=== PATIENT | female | born 2000 | race American Indian/Alaskan Native ===

== ENCOUNTER 2021-02-22 19:32 | Emergency (ER) | payer SELFPAY ==
[2021-02-22 20:36] VITALS: BP 124/68
== END 2021-02-23 01:00 | disposition left against medical advice (07) ==
LOC: ED 19:32
DX: M54.2 Cervicalgia (principal); Z53.21 Procedure and treatment not carried out due to patient leaving prior to being seen by health care provider

== ENCOUNTER 2021-10-13 01:54 | Emergency (ER) | payer SELFPAY ==
[2021-10-13 02:56] VITALS: BP 116/72
--- NOTE | 2021-10-13 03:07 | Emergency Department Report ---
ED General Adult HPI - General Chief complaint: Dental/Oral Stated complaint: MOUTH PAIN Source: patient Mode of arrival: Ambulatory Limitations: No Limitations - History of Present Illness Initial comments: Patient is an 21-year-old -Maced[place] female with no past medical history who presents to the ED with complaint of acute onset persistent painful swollen right mandibular gingiva and premolar molar toothache for the last 1 week, worse in the last 2 days. Patient states that the pain is worse with eating or speech, and that in the last 24 hours she also started having painful anterior right cervical lymphadenopathy. Patient denies ear pain, headache, chest pain, shortness of breath, fever, chills, nausea and vomiting, diarrhea, dysuria, urinary frequency and urgency and sore throat. MD Complaint: Right mandibular premolar and molar toothache; swollen gums -: Sudden, week(s) (1) Location: mouth Radiation: non-radiation Severity scale (0 -10): 4 Quality: aching, sharp Consistency: constant Improves with: none Worsens with: eating Associated Symptoms: denies other symptoms. denies: confusion, chest pain, cough, diaphoresis, fever/chills, headaches, loss of appetite, malaise, nausea/vomiting, rash, seizure, shortness of breath, syncope, weakness Treatments Prior to Arrival: none - Related Data Previous Rx's Medication Instructions Recorded Last Taken Type Amoxicillin/Potassium Clav 1 each PO Q12H #20 tab 10/13/21 Unknown Rx [Augmentin 875-125 Tablet] Ibuprofen [Motrin] 600 mg PO Q8H PRN #30 tablet 10/13/21 Unknown Rx Allergies Allergy/AdvReac Type Severity Reaction Status Date / Time No Known Allergies Allergy Verified 10/13/21 02:56 ED Review of Systems ROS: Stated complaint: MOUTH PAIN Other details as noted in HPI Constitutional: denies: chills, fever Eyes: denies: eye pain, eye discharge, vision change ENT: dental pain (Right mandibular premolar and molar toothache; swollen painful gum). denies: ear pain, throat pain Respiratory: denies: cough, shortness of breath, wheezing Cardiovascular: denies: chest pain, palpitations Endocrine: no symptoms reported Gastrointestinal: denies: abdominal pain, nausea, diarrhea Genitourinary: denies: urgency, dysuria, discharge Musculoskeletal: denies: back pain, joint swelling, arthralgia Skin: denies: rash, lesions Neurological: denies: headache, weakness, paresthesias Psychiatric: denies: anxiety, depression Hematological/Lymphatic: denies: easy bleeding, easy bruising ED Past Medical Hx - Past Medical History Previous Medical History?: No - Surgical History Past Surgical History?: Yes Additional Surgical History: breast reduction - Social History Smoking Status: Never Smoker Substance Use Type: None - Medications Home Medications: Home Medications Medication Instructions Recorded Confirmed Last Taken Type Amoxicillin/Potassium Clav 1 each PO Q12H #20 tab 10/13/21 Unknown Rx [Augmentin 875-125 Tablet] Ibuprofen [Motrin] 600 mg PO Q8H PRN #30 tablet 10/13/21 Unknown Rx ED Physical Exam - General Limitations: No Limitations General appearance: alert, in no apparent distress - Head Head exam: Present: atraumatic, normocephalic, normal inspection - Eye Eye exam: Present: normal appearance, PERRL, EOMI Pupils: Present: normal accommodation - ENT ENT exam: Present: mucous membranes moist, TM's normal bilaterally, normal external ear exam, other (Palpable tenderness of right mandibular premolar and molar teeth; mildly swollen, tender right mandibular gingiva) - Neck Neck exam: Present: normal inspection, full ROM, lymphadenopathy (Anterior right cervical lymphadenopathy). Absent: tenderness - Respiratory Respiratory exam: Present: normal lung sounds bilaterally. Absent: respiratory distress, wheezes, rales, rhonchi, chest wall tenderness, accessory muscle use, prolonged expiratory - Cardiovascular Cardiovascular Exam: Present: regular rate, normal rhythm, normal heart sounds. Absent: systolic murmur, diastolic murmur, rubs, gallop - GI/Abdominal GI/Abdominal exam: Present: soft, normal bowel sounds. Absent: tenderness, guarding, hyperactive bowel sounds, hypoactive bowel sounds, organomegaly - Extremities Exam Extremities exam: Present: normal inspection, full ROM, normal capillary refill. Absent: tenderness - Back Exam Back exam: Present: normal inspection, full ROM. Absent: tenderness, CVA tenderness (R), CVA tenderness (L), muscle spasm, paraspinal tenderness, vertebral tenderness - Neurological Exam Neurological exam: Present: alert, oriented X3, CN II-XII intact, normal gait, reflexes normal - Psychiatric Psychiatric exam: Present: normal affect, normal mood - Skin Skin exam: Present: warm, dry, intact, normal color. Absent: rash ED Course Vital Signs 10/13/21 02:52 Temperature 98.3 F Pulse Rate 90 Respiratory 14 Rate Blood Pressure 116/72 [Right] O2 Sat by Pulse 100 Oximetry ED Medical Decision Making - Medical Decision Making This is an 21-year-old -Maced[place] female with no past medical history who presents to the ED with complaint of acute onset persistent painful swollen right mandibular gingiva and premolar molar toothache for the last 1 week, worse in the last 2 days. Patient states that the pain is worse with eating or speech, and that in the last 24 hours she also started having painful anterior right cervical lymphadenopathy. In the ED, patient is alert and oriented x3 and is not in any distress. Patient is hemodynamically stable. Patient was discharged home on medications for pain and antibiotics, and advised to follow- up with her primary care physician or dentist in 7 to 10 days for reevaluation or return to the ED immediately if symptoms get worse. - Differential Diagnosis Dental abscess; gingivitis; dental caries; Critical care attestation.: If time is entered above; I have spent that time in minutes in the direct care of this critically ill patient, excluding procedure time. ED Disposition Clinical Impression: Dental abscess, Dental caries, Acute gingivitis Disposition: 01 HOME / SELF CARE / HOMELESS Is pt being admited?: No Does the pt Need Aspirin: No Condition: Stable Instructions: Dental Abscess, [id number], Trench Mouth, Dental Extraction, Care After, [id number] Additional Instructions: Take medication with food, drink plenty of fluids and follow-up with your primary care physician in 7 to 10 days for reevaluation. Return to the ED immediately if symptoms get worse with Prescriptions: Amoxicillin/Potassium Clav [Augmentin 875-125 Tablet] 1 each PO Q12H #20 tab Ibuprofen [Motrin] 600 mg PO Q8H PRN #30 tablet PRN Reason: Pain Referrals: [facility] [Outside] - 3-5 Days Time of Disposition: 03:07 Print Language: YAKUT
== END 2021-10-13 04:01 | disposition home or self-care (01) ==
LOC: ED 01:54
DX: K04.7 Periapical abscess without sinus (principal); K02.9 Dental caries, unspecified; K05.00 Acute gingivitis, plaque induced
CPT/HCPCS: 99282

== ENCOUNTER 2022-02-12 19:52 | Emergency (ER) | payer SELFPAY ==
[2022-02-13 01:29] LABS: Color,Urine Colorless (Yellow)
[2022-02-13 01:30] LABS: Bilirubin,Urine Negative (Negative); Blood,Urine Trace (Negative); PH,Urine 6.5 (5.0-7.0); Protein,Urine <15 mg/dL mg/dL (Negative); Urobilinogen,Urine 0.2 mg/dL (<2.0)
[2022-02-13 01:31] LABS: HCG Qualitative,Urine Negative (Negative)
[2022-02-13 01:33] LABS: Mucus,Urine FEW /HPF
[2022-02-13] MEDS ORDERED: LIDOCAINE-MPF (1%) 10 MG/1 ML VIAL 5 ML INFILTRATI ONE (02:28)
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
[2022-02-13 03:55] VITALS: BP 126/82
== END 2022-02-13 03:55 | disposition home or self-care (01) ==
LOC: ED 19:52
DX: Z20.2 Contact with and (suspected) exposure to infections with a predominantly sexual mode of transmission (principal); N76.0 Acute vaginitis; B37.3 Candidiasis of vulva and vagina
CPT/HCPCS: 81001; 81025; 87210; 96372; 99283; J0696; J3490

== ENCOUNTER 2022-04-03 14:54 | Emergency (ER) | payer MEDICAID ==
--- NOTE | 2022-04-03 15:57 | Event Note ---
ED Screening Note Date of service: 04/03/22 Time: 15:15 ED Screening Note: This initial assessment/diagnostic orders/clinical plan/treatment(s) is/are subject to change based on patients health status, clinical progression and re- assessment by fellow clinical providers in the ED. Further treatment and workup at subsequent clinical providers discretion. Patient/guardian urged not to elope from the ED as their condition may be serious if not clinically assessed and managed. Patient with rhinorrhea, sore throat, cough, myalgia sand rash. Daughter here with same. Initial orders include: My Active Orders 04/03/22 15:17 Rapid FLU Stat
--- NOTE | 2022-04-03 21:05 | Emergency Department Report ---
ED General Adult HPI - General Chief complaint: Headache Stated complaint: FATIGUE/HEADACHE Time Seen by Provider: 04/03/22 15:16 Source: patient Mode of arrival: Ambulatory Limitations: No Limitations - History of Present Illness Initial comments: Patient presents with rhinorrhea sore throat cough myalgias and rash since yesterday. Her son is here with same symptoms that started 4 days ago. She is also had body aches, fatigue, lightheadedness, anorexia but no anosmia or ageusia. No vomiting or diarrhea. No abdominal pain. No chest pain or shortness of breath. She did not test herself for COVID but her son was tested on Thursday so she did not think that it was COVID. - Related Data Previous Rx's Medication Instructions Recorded Last Taken Type Amoxicillin/Potassium Clav 1 each PO Q12H #20 tab 10/13/21 Unknown Rx [Augmentin 875-125 Tablet] Ibuprofen [Motrin] 600 mg PO Q8H PRN #30 tablet 10/13/21 Unknown Rx Doxycycline Hyclate 100 mg PO Q12H #20 cap 02/13/22 Unknown Rx Fluconazole (Nf) [Diflucan TAB] 150 mg PO ONCE #1 tablet 02/13/22 Unknown Rx metroNIDAZOLE [Flagyl] 500 mg PO Q12HR #14 tab 02/13/22 Unknown Rx Allergies Allergy/AdvReac Type Severity Reaction Status Date / Time No Known Allergies Allergy Verified 04/03/22 15:05 ED Review of Systems ROS: Stated complaint: FATIGUE/HEADACHE Other details as noted in HPI Constitutional: denies: chills, fever Eyes: denies: eye pain, eye discharge, vision change ENT: as per HPI Respiratory: see HPI. denies: shortness of breath, wheezing Cardiovascular: denies: chest pain, palpitations Endocrine: no symptoms reported Gastrointestinal: denies: abdominal pain, nausea, diarrhea Genitourinary: denies: urgency, dysuria, discharge Musculoskeletal: denies: back pain, joint swelling, arthralgia Skin: denies: rash, lesions Neurological: denies: headache, weakness, paresthesias Psychiatric: denies: anxiety, depression Hematological/Lymphatic: denies: easy bleeding, easy bruising ED Past Medical Hx - Past Medical History Previous Medical History?: No - Surgical History Additional Surgical History: breast reduction - Social History Smoking Status: Never Smoker Substance Use Type: None - Medications Home Medications: Home Medications Medication Instructions Recorded Confirmed Last Taken Type Amoxicillin/Potassium Clav 1 each PO Q12H #20 tab 10/13/21 Unknown Rx [Augmentin 875-125 Tablet] Ibuprofen [Motrin] 600 mg PO Q8H PRN #30 tablet 10/13/21 Unknown Rx Doxycycline Hyclate 100 mg PO Q12H #20 cap 02/13/22 Unknown Rx Fluconazole (Nf) [Diflucan TAB] 150 mg PO ONCE #1 tablet 02/13/22 Unknown Rx metroNIDAZOLE [Flagyl] 500 mg PO Q12HR #14 tab 02/13/22 Unknown Rx ED Physical Exam - General Limitations: No Limitations General appearance: alert, in no apparent distress - Head Head exam: Present: atraumatic, normocephalic - Eye Eye exam: Present: normal appearance - ENT ENT exam: Present: mucous membranes moist, other (Turbinate edema with clear rhinorrhea.) - Neck Neck exam: Present: normal inspection - Respiratory Respiratory exam: Present: normal lung sounds bilaterally. Absent: respiratory distress, wheezes, rales, rhonchi - Cardiovascular Cardiovascular Exam: Present: regular rate, normal rhythm. Absent: systolic murmur, diastolic murmur, rubs, gallop - GI/Abdominal GI/Abdominal exam: Present: soft, normal bowel sounds - Extremities Exam Extremities exam: Present: normal inspection - Back Exam Back exam: Present: normal inspection - Neurological Exam Neurological exam: Present: alert, oriented X3 - Psychiatric Psychiatric exam: Present: normal affect, normal mood - Skin Skin exam: Present: warm, dry, intact, normal color. Absent: rash ED Course Vital Signs 04/03/22 15:02 Temperature 98 F Pulse Rate 101 H Respiratory 18 Rate Blood Pressure 131/80 [Left] O2 Sat by Pulse 99 Oximetry - Reevaluation(s) Reevaluation #1: 04/03/22 21:16 Flu negative. ED Medical Decision Making - Medical Decision Making Patient presents with rhinorrhea sore throat cough myalgias and rash since yesterday. Her son is here with same symptoms that started 4 days ago. She is also had body aches, fatigue, lightheadedness, anorexia but no anosmia or ageusia. No vomiting or diarrhea. No abdominal pain. No chest pain or shortness of breath. She did not test herself for COVID but her son was tested on Thursday so she did not think that it was COVID. Several delays in getting patient's testing done, but patient remained comfortable here in the emergency department. Discussed with her that she should test both her and her son for COVID. Supportive care with Guaifenesin. Tylenol or Motrin as needed for fever pain. Warm compresses to the sinuses, warm salt water gargles, nasal saline. Follow-up with primary care this week Critical care attestation.: If time is entered above; I have spent that time in minutes in the direct care of this critically ill patient, excluding procedure time. ED Disposition Clinical Impression: Viral syndrome Disposition: HOME / SELF CARE / HOMELESS Is pt being admited?: No Condition: Stable Instructions: Viral Respiratory Infection, [id number] Additional Instructions: Guaifenesin. Tamiflu as prescribed. Tylenol or Motrin as needed for fever pain. Warm compresses to the sinuses, warm salt water gargles, nasal saline. 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
[2022-04-03 22:01] VITALS: BP 124/82
== END 2022-04-03 22:01 | disposition home or self-care (01) ==
LOC: ED 14:54
DX: B34.9 Viral infection, unspecified (principal)
CPT/HCPCS: 87400; 99283